=== PATIENT | female | born 1950 | race Caucasian/White ===

== ENCOUNTER 2023-09-25 18:55 | Inpatient (IN) | payer BC, MEDICARE ==
--- NOTE | 2023-09-25 19:57 | ED ---
Recheck HPI - General Chief Complaint: Recheck/Abnormal Lab/Rx Stated Complaint: Hyperkalemia Time Seen by Provider: 09/25/23 18:57 Source: patient, RN notes reviewed Mode of arrival: EMS Limitations: no limitations - History of Present Illness Initial Comments: This is a 73-year-old female who presents to the emergency department as a transfer from [facility] for hyperkalemia. She presented to the emergency department there today for feelings of fatigue, dizziness, and sleepiness. States "I feel like I cannot keep my eyes open". States that she has felt like this for the last couple of days. Denies any chest pain, shortness of breath, abdominal pain, headaches, or any other complaints. She has a history of renal cancer and was previously being treated with Keytruda, however she discontinued this in June and has decided to discontinue any further treatment. Her workup in [place] demonstrated elevated potassium, prompting them to transfer her here for further management, as they do not have nephrology available there. MD Complaint: abnormal lab - Related Data Home Medications Medication Instructions Recorded Confirmed aMILoride HCL 5 mg PO BID 09/25/23 09/25/23 atenoloL [Tenormin] 50 mg PO BID 09/25/23 09/25/23 hydrALAZINE HCL [Apresoline] 25 mg PO QID 09/25/23 09/25/23 lisinopriL [Zestril] 20 mg PO BID 09/25/23 09/25/23 metFORMIN HCL [Glucophage] 850 mg PO BID 09/25/23 09/25/23 Allergies Allergy/AdvReac Type Severity Reaction Status Date / Time clindamycin Allergy Rash/Hives Verified 09/25/23 21:06 Penicillins Allergy Unknown Verified 09/25/23 21:06 Childhood Review of Systems ROS Statement: Those systems with pertinent positive or pertinent negative responses have been documented in the HPI. ROS Other: All systems not noted in ROS Statement are negative. Past Medical History Past Medical History: Cancer Additional Past Medical History / Comment(s): Renal cancer History of Any Multi-Drug Resistant Organisms: None Reported Additional Past Surgical History / Comment(s): Kidney removal. port insert, p ort removal Smoking Status: Never smoker Past Alcohol Use History: None Reported Past Drug Use History: None Reported General Exam Limitations: no limitations General appearance: alert, in no apparent distress Head exam: Present: atraumatic, normocephalic, normal inspection Respiratory exam: Present: normal lung sounds bilaterally. Absent: respiratory distress, wheezes, rales, rhonchi, stridor Cardiovascular Exam: Present: regular rate, normal rhythm, normal heart sounds. Absent: systolic murmur, diastolic murmur, rubs, gallop, clicks GI/Abdominal exam: Present: soft, normal bowel sounds. Absent: distended, tenderness, guarding, rebound, rigid Neurological exam: Present: alert, oriented X3, CN II-XII intact Psychiatric exam: Present: normal affect, normal mood Skin exam: Present: warm, dry, intact, normal color. Absent: rash Course Vital Signs 09/25/23 09/25/23 09/25/23 18:59 19:08 21:12 Temperature 97.9 F Pulse Rate 60 57 L 62 Respiratory 18 18 18 Rate Blood Pressure 183/106 183/106 162/79 O2 Sat by Pulse 97 97 96 Oximetry 09/25/23 09/26/23 23:00 01:50 Temperature 98.0 F Pulse Rate 61 59 L Respiratory 18 16 Rate Blood Pressure 144/73 141/63 O2 Sat by Pulse 97 94 L Oximetry Medical Decision Making - Medical Decision Making This is a 73-year-old female who presents to the emergency department for hyperkalemia. Was pt. sent in by a medical professional or institution? @ -No Did you speak to anyone other than the patient for history? @ -No Did you review nursing and triage notes? @ -Yes, and I agree, it is accurate with regards to the patient's symptoms. Were old charts reviewed? @ -Records sent with the patient from [facility]. Potassium was 7.2, Na 123, Cr 1.3, and eGFR 42. Blood work was obtained one day prior on 09/24, and potassium at that time was 5.0. Mg was 1.9. Urinalysis was also consistent with a UTI. Differential Diagnosis? @ -Differential Hyperkalemia: Renal failure, medications, diet, rhabdomyolysis, this is not meant to be an all-inclusive list. EKG interpreted by me (3pts min.)? @ -EKG interpreted by me demonstrating the following: Sinus rhythm. Ventricular rate 60 beats per minute, NE interval 226 ms, QRS duration 110 seconds, QTC 434 ms. X-rays interpreted by me (1pt min.)? @ -Not obtained CT interpreted by me (1pt min.)? @ -Not obtained U/S interpreted by me (1pt. min.)? @ -Not obtained What testing was considered but not performed? (CT, X-rays, U/S, labs)? Why? @ -None What meds were considered but not given? Why? @ -None Did you discuss the management of the patient with other professionals? @ -Yes, Dr. Palmer, who accepts the patient for admission. Did you reconcile home meds? @ -Yes Was smoking cessation discussed for >3mins.? @ -No Was critical care preformed (if so, how long)? @ -No Were there social determinants of health that impacted care today? How? (Homelessness, low income, unemployed, alcoholism, drug addiction, transportation, low edu. Level, literacy, decrease access to med. care, group home, rehab)? @ -No Was there de-escalation of care discussed even if they declined? (Discuss DNR or withdrawal of care, Hospice)? @ -No What co-morbidities impacted this encounter? (DM, HTN, Smoking, COPD, CAD, Cancer, CVA, Hep., AIDS, mental health diagnosis, sleep apnea, morbid obesity)? @ -DM type 2, vitamin D deficiency, HLD, hypomagnesemia, HTN, renal cancer Was patient admitted / discharged? @ -Admitted. Lab work obtained demonstrating a potassium of 6.4, which is improved when compared with 7.2 at [place]. She also has hyponatremia with a sodium of 125 and impaired kidney function with a creatinine of 1.09 and eGFR of 50. Urinalysis is also positive for a UTI. States that this was diagnosed 2 days ago. She did already receive a dose of Ceftriaxone before leaving [place] today. Hyperkalemia cocktail administered consisting of calcium gluconate, insulin, sodium bicarbonate, and Lokelma. Recheck of potassium is 5.3. Patient admitted to medicine for hyperkalemia and hyponatremia. Consult placed for nephrology. Undiagnosed new problem with uncertain prognosis? @ -None Drug Therapy requiring intensive monitoring for toxicity (Heparin, Nitro, Insulin, Cardizem)? @ -None Were any procedures done? @ -None Diagnosis/symptom? @ -Hyperkalemia, hyponatremia, UTI Acute, or Chronic, or Acute on Chronic? @ -Acute Uncomplicated (without systemic symptoms) or Complicated (systemic symptoms)? @ -Complicated Side effects of treatment? @ -None Exacerbation, Progression, or Severe Exacerbation] @ -Not applicable Poses a threat to life or bodily function? @ -Yes This case was discussed in detail with the attending ED physician, Dr. Santiago. Presentation, findings, and treatment plan discussed in detail as well. - Lab Data Result diagrams: 09/25/23 19:47 09/26/23 00:48 Lab Results 09/25/23 09/25/23 09/25/23 Range/Units 19:47 19:47 19:47 WBC 7.0 (3.8-10.6) k/uL RBC 4.39 (3.80-5.40) m/uL Hgb 13.1 (11.4-16.0) gm/dL Hct 38.1 (34.0-46.0) % MCV 86.9 (80.0-100.0) fL MCH 29.8 (25.0-35.0) pg MCHC 34.3 (31.0-37.0) g/dL RDW 12.9 (11.5-15.5) % Plt Count 420 (150-450) k/uL MPV 6.9 Neutrophils % 84 % Lymphocytes % 7 % Monocytes % 4 % Eosinophils % 2 % Basophils % 1 % Neutrophils # 5.9 (1.3-7.7) k/uL Lymphocytes # 0.5 L (1.0-4.8) k/uL Monocytes # 0.3 (0-1.0) k/uL Eosinophils # 0.2 (0-0.7) k/uL Basophils # 0.0 (0-0.2) k/uL VBG pH (7.31-7.41) VBG pCO2 (37-51) mmHg VBG HCO3 (24-28) mmol/L Sodium 125 L (137-145) mmol/L Potassium 6.4 H* (3.5-5.1) mmol/L Chloride 97 L (98-107) mmol/L Carbon Dioxide 16 L (22-30) mmol/L Anion Gap 12 mmol/L BUN 21 H (7-17) mg/dL Creatinine 1.09 H (0.52-1.04) mg/dL Est GFR (CKD-EPI)AfAm 58 (>60 ml/min/1.73 sqM) Est GFR (CKD-EPI)NonAf 50 (>60 ml/min/1.73 sqM) Glucose 130 H (74-99) mg/dL POC Glucose (mg/dL) (70-110) mg/dL POC Glu Turnstile Collector ID Calcium 9.4 (8.4-10.2) mg/dL Phosphorus 4.0 (2.5-4.5) mg/dL Magnesium 2.0 (1.6-2.3) mg/dL Total Bilirubin 0.4 (0.2-1.3) mg/dL AST 22 (14-36) U/L ALT 22 (4-34) U/L Alkaline Phosphatase 85 (38-126) U/L Troponin I (0.000-0.034) ng/mL Total Protein 7.0 (6.3-8.2) g/dL Albumin 4.3 (3.5-5.0) g/dL Urine Color Colorless Urine Appearance Clear (Clear) Urine pH 7.5 (5.0-8.0) Ur Specific Shelby 1.007 (1.001-1.035) Urine Protein Negative (Negative) Urine Glucose (UA) Negative (Negative) Urine Ketones Negative (Negative) Urine Blood Negative (Negative) Urine Nitrite Positive H (Negative) Urine Bilirubin Negative (Negative) Urine Urobilinogen <2.0 (<2.0) mg/dL Ur Leukocyte Esterase Moderate H (Negative) Urine RBC 1 (0-5) /hpf Urine WBC 26 H (0-5) /hpf Urine Bacteria Rare H (None) /hpf 09/25/23 09/25/23 09/25/23 Range/Units 19:47 19:47 21:06 WBC (3.8-10.6) k/uL RBC (3.80-5.40) m/uL Hgb (11.4-16.0) gm/dL Hct (34.0-46.0) % MCV (80.0-100.0) fL MCH (25.0-35.0) pg MCHC (31.0-37.0) g/dL RDW (11.5-15.5) % Plt Count (150-450) k/uL MPV Neutrophils % % Lymphocytes % % Monocytes % % Eosinophils % % Basophils % % Neutrophils # (1.3-7.7) k/uL Lymphocytes # (1.0-4.8) k/uL Monocytes # (0-1.0) k/uL Eosinophils # (0-0.7) k/uL Basophils # (0-0.2) k/uL VBG pH 7.33 (7.31-7.41) VBG pCO2 37 (37-51) mmHg VBG HCO3 20 L (24-28) mmol/L Sodium (137-145) mmol/L Potassium (3.5-5.1) mmol/L Chloride (98-107) mmol/L Carbon Dioxide (22-30) mmol/L Anion Gap mmol/L BUN (7-17) mg/dL Creatinine (0.52-1.04) mg/dL Est GFR (CKD-EPI)AfAm (>60 ml/min/1.73 sqM) Est GFR (CKD-EPI)NonAf (>60 ml/min/1.73 sqM) Glucose (74-99) mg/dL POC Glucose (mg/dL) 140 H (70-110) mg/dL POC Glu Turnstile Collector ID Lugo, Cherelle Calcium (8.4-10.2) mg/dL Phosphorus (2.5-4.5) mg/dL Magnesium (1.6-2.3) mg/dL Total Bilirubin (0.2-1.3) mg/dL AST (14-36) U/L ALT (4-34) U/L Alkaline Phosphatase (38-126) U/L Troponin I <0.012 (0.000-0.034) ng/mL Total Protein (6.3-8.2) g/dL Albumin (3.5-5.0) g/dL Urine Color Urine Appearance (Clear) Urine pH (5.0-8.0) Ur Specific Shelby (1.001-1.035) Urine Protein (Negative) Urine Glucose (UA) (Negative) Urine Ketones (Negative) Urine Blood (Negative) Urine Nitrite (Negative) Urine Bilirubin (Negative) Urine Urobilinogen (<2.0) mg/dL Ur Leukocyte Esterase (Negative) Urine RBC (0-5) /hpf Urine WBC (0-5) /hpf Urine Bacteria (None) /hpf Disposition Clinical Impression: Hyperkalemia, Hyponatremia, UTI (urinary tract infection) Disposition: ADMITTED IP TO THIS HOSP
[2023-09-25 20:13] LABS: Basophils % (A) 1 %; Eosinophils # (A) 0.2 k/uL (0-0.7); Eosinophils % (A) 2 %; HCT 38.1 % (34.0-46.0); HGB 13.1 gm/dL (11.4-16.0); Lymphocytes # (A) 0.5 k/uL (1.0-4.8); Lymphocytes % (A) 7 %; MCH 29.8 pg (25.0-35.0); MCHC 34.3 g/dL (31.0-37.0); MCV 86.9 fL (80.0-100.0); Mean Platelet Volume 6.9; Monocytes # (A) 0.3 k/uL (0-1.0); Monocytes % (A) 4 %; Neutrophils # (A) 5.9 k/uL (1.3-7.7); Neutrophils % (A) 84 %; Platelet Count 420 k/uL (150-450); RBC 4.39 m/uL (3.80-5.40); RDW 12.9 % (11.5-15.5)
[2023-09-25 20:16] LABS: VBG PH 7.33 (7.31-7.41)
[2023-09-25 20:35] LABS: ALT 22 U/L (4-34); AST 22 U/L (14-36); African American GFR (CKD) 58 (>60 ml/min/1.73 sqM); Albumin 4.3 g/dL (3.5-5.0); Alkaline Phosphatase 85 U/L (38-126); Anion Gap 12 mmol/L; Blood Urea Nitrogen 21 mg/dL (7-17); Calcium 9.4 mg/dL (8.4-10.2); Carbon Dioxide 16 mmol/L (22-30); Chloride 97 mmol/L (98-107); Glucose 130 mg/dL (74-99); Non-African American GFR(CKD) 50 (>60 ml/min/1.73 sqM); Sodium 125 mmol/L (137-145); Total Bilirubin 0.4 mg/dL (0.2-1.3)
[2023-09-25 20:43] LABS: Potassium 6.4 mmol/L (3.5-5.1)
[2023-09-25] MEDS ORDERED: DEXTROSE 50% SYRINGE 50 ML IVP ONE (20:49)
[2023-09-25] MEDS ORDERED: SODIUM ZIRCONIUM CYCLOSILICATE 10 GM PACKET PO ONE (20:49)
[2023-09-25] MEDS ORDERED: INSULIN REGULAR 100 UNIT/ML VIAL (IV) IV ONE (20:49)
[2023-09-25] MEDS ORDERED: SODIUM BICARB 8.4% 50 ML SYR (1 MEQ/ML) IV ONE (20:49)
[2023-09-25 20:52] LABS: Appearance,Urine Clear (Clear); Bacteria,Urine Rare /hpf; Bilirubin,Urine Negative (Negative); Blood,Urine Negative (Negative); Color,Urine Colorless; Glucose,Urine (UA) Negative (Negative); Ketones,Urine Negative (Negative); Leukocyte Esterase,Urine Moderate (Negative); Nitrite,Urine Positive (Negative); PH, Urine 7.5 (5.0-8.0); Protein,Urine Negative (Negative); RBC,Urine 1 /hpf (0-5); Specific Gravity,Urine 1.007 (1.001-1.035); Urobilinogen,Urine <2.0 mg/dL (<2.0); WBC,Urine 26 /hpf (0-5)
[2023-09-25 21:08] LABS: Glucose,Whole Blood 140 mg/dL (70-110)
[2023-09-25] MEDS ORDERED: NALOXONE 0.4 MG/ML 1 ML VIAL IV PRN (21:10)
[2023-09-25] MEDS ORDERED: HYDROcodone/APAP 5-325MG 1 EACH TAB PO PRN (21:10)
[2023-09-25] MEDS ORDERED: ONDANSETRON 4 MG/2 ML VIAL IVP PRN (21:10)
[2023-09-25] MEDS ORDERED: CALCIUM GLUCONATE IN NACL 1 GM in SALINE 1 100ML.BAG IVPB ONE (21:20)
[2023-09-25] MEDS ORDERED: DEXTROSE 10% IN WATER 500 ML in EMPTY BAG 1 BAG IV ONE (21:30)
[2023-09-25] MEDS ORDERED: SPIRONOLACTONE 25 MG TAB PO SCH (21:45)
[2023-09-25] MEDS ORDERED: lisinopriL 20 MG TAB PO SCH (21:45)
[2023-09-25] MEDS ORDERED: metFORMIN 850 MG TAB PO SCH (21:45)
[2023-09-25] MEDS ORDERED: hydrALAZINE HCL 20 MG/ML 1 ML VIAL IVP PRN (21:52)
[2023-09-25] MEDS ORDERED: hydrALAZINE HCL 25 MG TAB PO SCH (22:00)
[2023-09-25] MEDS: atenoloL 50 MG TAB PO SCH (23:31)
[2023-09-25] MEDS: hydrALAZINE HCL 50 MG TAB PO SCH (23:31)
[2023-09-25] MEDS: DEXTROSE 5% IN WATER 1,000 ML with SODIUM BICARB (1 MEQ/ML) 150 ML IV SCH (23:34)
[2023-09-26] MEDS: ACETAMINOPHEN TAB 325 MG TAB PO PRN ×2 (01:48→13:03)
[2023-09-26 07:36] LABS: HCT 35.9 % (34.0-46.0); HGB 12.3 gm/dL (11.4-16.0); MCH 29.7 pg (25.0-35.0); MCHC 34.2 g/dL (31.0-37.0); MCV 86.9 fL (80.0-100.0); Mean Platelet Volume 7.3; Platelet Count 396 k/uL (150-450); RBC 4.13 m/uL (3.80-5.40); RDW 12.9 % (11.5-15.5); WBC 5.5 k/uL (3.8-10.6)
--- NOTE | 2023-09-26 08:02 | US ---
EXAMINATION TYPE: US kidneys/renal and bladder DATE OF EXAM: 09/25/2023 COMPARISON: NONE CLINICAL INDICATION: Female, 73 years old with history of tomás; TOMÁS. Nephrectomy in September 2022 EXAM MEASUREMENTS: Right Kidney: 11.2 x 4.4 x 6.1 cm Left Kidney: Surgically absent Right Kidney: Dilated renal pelvis , no evidence for mass. Cortical medullary differentiation is temo ntained. Left Kidney: Surgically absent Bladder: Contracted due to proctor Bilateral Jets seen: Not assessed IMPRESSION: 1. Proctor catheter in place. 2. Dilated right renal pelvis correlate for hydronephrosis. 3. Surgical clips left kidney.
[2023-09-26 08:31] LABS: African American GFR (CKD) 63 (>60 ml/min/1.73 sqM); Anion Gap 10 mmol/L; Blood Urea Nitrogen 18 mg/dL (7-17); Calcium 9.6 mg/dL (8.4-10.2); Carbon Dioxide 21 mmol/L (22-30); Chloride 96 mmol/L (98-107); Glucose 115 mg/dL (74-99); Non-African American GFR(CKD) 55 (>60 ml/min/1.73 sqM); Potassium 4.9 mmol/L (3.5-5.1); Sodium 127 mmol/L (137-145)
[2023-09-26] MEDS: hydrALAZINE HCL 50 MG TAB PO SCH ×4 (10:12→23:36)
[2023-09-26] MEDS: NITROFURANTOIN MONOHYD/M-CRYST 100 MG CAP PO SCH ×2 (10:12→21:00)
[2023-09-26] MEDS: atenoloL 50 MG TAB PO SCH ×2 (10:12→21:00)
--- NOTE | 2023-09-26 11:53 | P.HPIM ---
History of Present Illness H&P Date: 09/26/23 Chief Complaint: Abnormal blood work * 73-year-old lady with past medical history significant for nephrectomy, history of renal cancer is post left nephrectomy, hypertension, diabetes mellitus type 2 presents to the emergency department sent in from outside hospital for management for hyperkalemia due to lack of availability of nephrology * Patient has been complaining of fatigue, pathology and lightheadedness at the time of presentation, patient states her symptoms have been going on for the last 48 hours * While in ER patient was also noted to have urinary retention with 700 mL of post void residue hence Arana catheter placed * At the time of presentation in ED workup was initiated including CBC which showed WBC 7 hemoglobin 13 platelet count of 420 * Serum chemistry obtained showed sodium of 125 potassium of 6.4 chloride 97 carbon dioxide 16 BU and 21 creatinine 1.09 * Urinalysis obtained in ER showed pH of 7.5 urine specific gravity 1.007, urine nitrate positive, moderate leukocyte esterase WBC 20 6B bacteria urine RBC 1 * Treatment for hyperkalemia was initiated in ER patient received calcium gluconate, insulin, sodium bicarbonate and low, * Follow-up basic metabolic panel and potassium levels ordered and nephrology consulted REVIEW OF SYSTEMS: Fatigue, lethargy, malaise CONSTITUTIONAL: Fatigue, lethargy, malaise HEENT: No recent visual problems or hearing problems. Denied any sore throat. CARDIOVASCULAR: No chest pain, orthopnea, PND, no palpitations, no syncope. PULMONARY: No shortness of breath, no cough, no hemoptysis. GASTROINTESTINAL: No diarrhea, no nausea, no vomiting, no abdominal pain. NEUROLOGICAL: No headaches, no weakness, no numbness. HEMATOLOGICAL: Denies any bleeding or petechiae. GENITOURINARY: Denies any burning micturition, frequency, or urgency. MUSCULOSKELETAL/RHEUMATOLOGICAL: Denies any joint pain, swelling, or any muscle pain. ENDOCRINE: Fatigue, lethargy, malaise PHYSICAL EXAMINATION: GENERAL: The patient is alert and oriented x3, ill appearance HEENT: Pupils are round and equally reacting to light. EOMI. CARDIOVASCULAR: S1 and S2 present. No murmurs, rubs, or gallops. PULMONARY: Chest is clear to auscultation, no wheezing or crackles. ABDOMEN: Soft, nontender, nondistended, normoactive bowel sounds. No palpable organomegaly. Arana cath in place MUSCULOSKELETAL: No joint swelling or deformity. EXTREMITIES: No cyanosis, clubbing, or pedal edema. NEUROLOGICAL: Gross neurological examination did not reveal any focal deficits. Past Medical History Past Medical History: Cancer Additional Past Medical History / Comment(s): Renal cancer History of Any Multi-Drug Resistant Organisms: None Reported Additional Past Surgical History / Comment(s): Kidney removal. port insert, port removal Smoking Status: Never smoker Past Alcohol Use History: None Reported Past Drug Use History: None Reported Medications and Allergies Home Medications Medication Instructions Recorded Confirmed Type aMILoride HCL 5 mg PO BID 09/25/23 09/25/23 History atenoloL [Tenormin] 50 mg PO BID 09/25/23 09/25/23 History hydrALAZINE HCL [Apresoline] 25 mg PO QID 09/25/23 09/25/23 History lisinopriL [Zestril] 20 mg PO BID 09/25/23 09/25/23 History metFORMIN HCL [Glucophage] 850 mg PO BID 09/25/23 09/25/23 History Allergies Allergy/AdvReac Type Severity Reaction Status Date / Time clindamycin Allergy Rash/Hives Verified 09/25/23 21:06 Penicillins Allergy Unknown Verified 09/25/23 21:06 Childhood Physical Exam Vitals: Vital Signs Temp Pulse Resp BP Pulse Ox 09/26/23 06:46 53 L 18 145/69 99 09/26/23 01:50 98.0 F 59 L 16 141/63 94 L 09/25/23 23:00 61 18 144/73 97 09/25/23 21:12 62 18 162/79 96 09/25/23 19:08 97.9 F 57 L 18 183/106 97 09/25/23 18:59 60 18 183/106 97 Intake and Output 09/25/23 09/26/23 09/26/23 22:59 06:59 14:59 Output Total 600 1150 Balance -600 -1150 Output: Urine 600 1150 Uretheral (Arana) 600 Other: Weight 65.317 kg Results CBC & Chem 7: 09/26/23 07:02 09/26/23 07:02 Labs: Abnormal Lab Results - Last 24 Hours (Table) 09/25/23 09/25/23 09/25/23 Range/Units 19:47 19:47 19:47 Lymphocytes # 0.5 L (1.0-4.8) k/uL VBG HCO3 (24-28) mmol/L Sodium 125 L (137-145) mmol/L Potassium 6.4 H* (3.5-5.1) mmol/L Chloride 97 L (98-107) mmol/L Carbon Dioxide 16 L (22-30) mmol/L BUN 21 H (7-17) mg/dL Creatinine 1.09 H (0.52-1.04) mg/dL Glucose 130 H (74-99) mg/dL POC Glucose (mg/dL) (70-110) mg/dL Urine Nitrite Positive H (Negative) Ur Leukocyte Esterase Moderate H (Negative) Urine WBC 26 H (0-5) /hpf Urine Bacteria Rare H (None) /hpf 09/25/23 09/25/23 09/26/23 Range/Units 19:47 21:06 00:48 Lymphocytes # (1.0-4.8) k/uL VBG HCO3 20 L (24-28) mmol/L Sodium (137-145) mmol/L Potassium 5.3 H (3.5-5.1) mmol/L Chloride (98-107) mmol/L Carbon Dioxide (22-30) mmol/L BUN (7-17) mg/dL Creatinine (0.52-1.04) mg/dL Glucose (74-99) mg/dL POC Glucose (mg/dL) 140 H (70-110) mg/dL Urine Nitrite (Negative) Ur Leukocyte Esterase (Negative) Urine WBC (0-5) /hpf Urine Bacteria (None) /hpf 09/26/23 Range/Units 07:02 Lymphocytes # (1.0-4.8) k/uL VBG HCO3 (24-28) mmol/L Sodium 127 L (137-145) mmol/L Potassium (3.5-5.1) mmol/L Chloride 96 L (98-107) mmol/L Carbon Dioxide 21 L (22-30) mmol/L BUN 18 H (7-17) mg/dL Creatinine (0.52-1.04) mg/dL Glucose 115 H (74-99) mg/dL POC Glucose (mg/dL) (70-110) mg/dL Urine Nitrite (Negative) Ur Leukocyte Esterase (Negative) Urine WBC (0-5) /hpf Urine Bacteria (None) /hpf Thrombosis Risk Factor Assmnt - DVT/VTE Prophylaxis DVT/VTE Prophylaxis: Mechanical Prophylaxis ordered Assessment and Plan Assessment: Assessment and plan * Acute renal failure with hyperkalemia, urinary retention * Acute hyponatremia * Metabolic acidosis * Urinary tract infection * History of hypertension * History of nephrectomy for renal cancer/left nephrectomy * In regards to renal failure, follow-up on renal profile, ultrasound renal pelvis shows dilated right renal pelvis, left nephrectomy noted, Arana cath in place, continue IV fluids * In regards to hyponatremia, follow-up on serum sodium levels post hydration * In regards to hyperkalemia, correction ordered follow-up potassium levels improved * In regards to urinary tract infection, urine cultures ordered, penicillin ALLERGY, started on Macrobid, Arana catheter placed for urinary retention * In regards to hypertension, lisinopril placed on hold secondary to renal failure and hyperkalemia continue atenolol, when necessary IV hydralazine, oral hydralazine ordered as well * CODE STATUS is full code Time with Patient: Greater than 30
[2023-09-26] MEDS: DEXTROSE 5% IN WATER 1,000 ML with SODIUM BICARB (1 MEQ/ML) 150 ML IV SCH (12:57)
--- NOTE | 2023-09-26 13:16 | P.NPCON ---
History of Present Illness - Reason for Consult chronic renal failure, hyperkalemia - History of Present Illness Reason for consultation: Chronic kidney disease and hyperkalemia next History of present illness: Patient is a 73-year-old female seen in consultation for chronic kidney disease and hyperkalemia. Patient has history of chronic kidney disease stage IIIA with baseline creatinine near 1.1 secondary to solitary right kidney. Patient has history of kidney cancer and underwent left-sided nephrectomy in September 2022. Patient was feeling weak and sleepy and went to [facility] and was subsequently sent here due to hyperkalemia. Patient's potassium on admission was 6.4. She was also acidotic with a bicarb level of 16. She is currently on bicarb drip. Creatinine is 1-1.02. Sodium level is up to 127. Potassium level is down to 4.9. She also has a Arana catheter for urinary retention and is nonoliguric. She was on amiloride as well as lisinopril which are both currently held. She denies use of nonsteroidals. Oral intake is fair. She does admit to drinking about 60 ounces of fluid daily. Denies vomiting or diarrhea. No chest pain or shortness of breath. No edema. Vital signs are stable. General: No acute distress. HEENT: Head exam is unremarkable. LUNGS: No audible rhonchi or wheezes. HEART: Rate and Rhythm are regular. ABDOMEN: Nontender. EXTREMITITES: No edema. Past Medical History Past Medical History: Cancer Additional Past Medical History / Comment(s): Renal cancer History of Any Multi-Drug Resistant Organisms: None Reported Additional Past Surgical History / Comment(s): Kidney removal. port insert, port removal Smoking Status: Never smoker Past Alcohol Use History: None Reported Past Drug Use History: None Reported Medications and Allergies Home Medications Medication Instructions Recorded Confirmed Type aMILoride HCL 5 mg PO BID 09/25/23 09/25/23 History atenoloL [Tenormin] 50 mg PO BID 09/25/23 09/25/23 History hydrALAZINE HCL [Apresoline] 25 mg PO QID 09/25/23 09/25/23 History lisinopriL [Zestril] 20 mg PO BID 09/25/23 09/25/23 History metFORMIN HCL [Glucophage] 850 mg PO BID 09/25/23 09/25/23 History Allergies Allergy/AdvReac Type Severity Reaction Status Date / Time clindamycin Allergy Rash/Hives Verified 09/25/23 21:06 Penicillins Allergy Unknown Verified 09/25/23 21:06 Childhood Physical Exam Vitals: Vital Signs Temp Pulse Resp BP Pulse Ox 09/26/23 12:55 63 18 147/67 96 09/26/23 11:35 62 18 165/77 95 09/26/23 10:10 98.0 F 58 L 18 164/80 97 09/26/23 09:00 60 18 173/81 97 09/26/23 06:46 53 L 18 145/69 99 09/26/23 01:50 98.0 F 59 L 16 141/63 94 L 09/25/23 23:00 61 18 144/73 97 09/25/23 21:12 62 18 162/79 96 09/25/23 19:08 97.9 F 57 L 18 183/106 97 09/25/23 18:59 60 18 183/106 97 Intake and Output 09/25/23 09/26/23 09/26/23 22:59 06:59 14:59 Output Total 600 1150 1400 Balance -600 -1150 -1400 Output: Urine 600 1150 1400 Uretheral (Arana) 600 Other: Weight 65.317 kg Results - Lab Results Most recent lab results Calcium 9.6 mg/dL (8.4-10.2) 09/26/23 07:02 Phosphorus 4.0 mg/dL (2.5-4.5) 09/25/23 19:47 Magnesium 2.0 mg/dL (1.6-2.3) 09/25/23 19:47 09/26/23 07:02 09/26/23 07:02 Assessment and Plan Plan: Assessment: 1. Chronic kidney disease stage IIIa secondary to solitary right kidney with baseline creatinine 1-1.1. 2. Hypovolemic hyponatremia improved with IV fluids. 3. Hyperkalemia secondary to amiloride, lisinopril and acidosis. Improved with medical management. 4. Hypertension with chronic kidney disease. 5. History of hypomagnesemia. Magnesium level normal this admission. Patient states she was started on amiloride due to the hypomagnesemia. Patient states s he started it about 2 weeks ago as it was on hold prior to that while she was on chemotherapy. 6. History of renal cancer status post left nephrectomy. 7. Urinary retention. Arana catheter placed. Plan: Stop bicarb drip. Start normal saline at 75 mL an hour. Add oral bicarb. Continue to hold lisinopril and amiloride for now. Maintain Arana catheter. Add Flomax. Add amlodipine 5 mg once daily. Repeat labs in the morning. Thank you for the consultation. I will continue to follow the patient with you during her hospital stay.
[2023-09-26] MEDS: amLODIPine 5 MG TAB PO SCH (15:17)
[2023-09-26] MEDS: SODIUM BICARBONATE TAB 650 MG TAB PO SCH ×2 (15:18→21:00)
[2023-09-26] MEDS: SODIUM CHLORIDE 0.9% 1,000 ML IV SCH (15:18)
[2023-09-26] MEDS: TAMSULOSIN 0.4 MG CAP.ER.24H PO SCH (15:18)
[2023-09-27 09:38] LABS: HCT 35.8 % (34.0-46.0); HGB 12.3 gm/dL (11.4-16.0); MCH 29.6 pg (25.0-35.0); MCHC 34.4 g/dL (31.0-37.0); MCV 86.1 fL (80.0-100.0); Mean Platelet Volume 7.6; Platelet Count 389 k/uL (150-450); RBC 4.16 m/uL (3.80-5.40)
[2023-09-27] MEDS: SODIUM BICARBONATE TAB 650 MG TAB PO SCH ×3 (09:51→21:06)
[2023-09-27] MEDS: TAMSULOSIN 0.4 MG CAP.ER.24H PO SCH (09:51)
[2023-09-27] MEDS: amLODIPine 5 MG TAB PO SCH (09:51)
[2023-09-27] MEDS: NITROFURANTOIN MONOHYD/M-CRYST 100 MG CAP PO SCH ×2 (09:51→21:06)
[2023-09-27] MEDS: hydrALAZINE HCL 50 MG TAB PO SCH ×4 (09:51→21:06)
[2023-09-27] MEDS: atenoloL 50 MG TAB PO SCH ×2 (09:51→21:06)
[2023-09-27] MEDS: SODIUM CHLORIDE 0.9% 1,000 ML IV SCH ×2 (10:05→16:07)
--- NOTE | 2023-09-27 11:53 | P.PN ---
Subjective Patient is seen for follow-up for acute kidney injury and chronic kidney disease. She was admitted with hyperkalemia and metabolic acidosis as well. Also noted to have urine retention and currently with indwelling Arana catheter. Lisinopril is on hold and patient was started on amlodipine. She has previously had significant lower extremity edema with amlodipine. Overall patient states she is feeling better. Potassium was 4.9 yesterday with sodium at 127 and serum creatinine 1.02. Objective - Vital Signs Vital signs: Vital Signs Temp 98.7 F 09/27/23 08:00 Pulse 58 L 09/27/23 08:40 Resp 16 09/27/23 08:40 BP 168/76 09/27/23 08:00 Pulse Ox 97 09/27/23 08:00 FiO2 Intake & Output 09/26/23 09/27/23 09/27/23 18:59 06:59 18:59 Intake Total 240 Output Total 1400 1400 79 Balance -1400 -1400 161 Weight 65.317 kg Intake: Oral 240 Output: Urine 1400 1400 Post Void Residual 79 Other: Voiding Method Indwelling Catheter Indwelling Catheter - Exam Patient is awake, comfortable, alert oriented 3 Examination of the heart S1 and S2 Examination of the lungs bilateral breath sounds are heard Abdomen is soft nontender Examination of lower extremity shows no significant edema BLADDER BLOWER exam grossly intact - Labs CBC & Chem 7: 09/27/23 07:02 09/26/23 07:02 Labs: Microbiology - Last 24 Hours (Table) 09/25/23 21:00 Blood Culture - Preliminary Blood 09/25/23 21:13 Blood Culture - Preliminary Blood 09/25/23 21:13 Urine Culture - Final Urine,Clean Catch Assessment and Plan Assessment: 1. Chronic kidney disease stage IIIa secondary to solitary right kidney with baseline creatinine 1-1.1. 2. Hypovolemic hyponatremia improved with IV fluids. 3. Hyperkalemia secondary to amiloride, lisinopril and acidosis and probably related to the urine retention as well. Improved with medical management. 4. Hypertension with chronic kidney disease. 5. History of hypomagnesemia. Magnesium level normal this admission. Patient states she was started on amiloride due to the hypomagnesemia. Patient states she started it about 2 weeks ago as it was on hold prior to that while she was on chemotherapy. 6. History of renal cancer status post left nephrectomy. 7. Urinary retention. Arana catheter placed. Plan: May continue with amlodipine for now as patient does not have any significant swelling. Continue off of lisinopril. DC Arana catheter and check post void bladder scan Continue with Flomax Continue with sodium bicarb Possible discharge tomorrow and follow-up in the office in one week
[2023-09-27 12:07] LABS: African American GFR (CKD) 60 (>60 ml/min/1.73 sqM); Anion Gap 11 mmol/L; Blood Urea Nitrogen 19 mg/dL (7-17); C Reactive Protein <0.5 mg/dL (<1.0); Calcium 9.3 mg/dL (8.4-10.2); Carbon Dioxide 22 mmol/L (22-30); Chloride 93 mmol/L (98-107); Glucose 131 mg/dL (74-99); Magnesium 1.6 mg/dL (1.6-2.3); Non-African American GFR(CKD) 52 (>60 ml/min/1.73 sqM); Potassium 4.7 mmol/L (3.5-5.1); Sodium 126 mmol/L (137-145)
[2023-09-27 12:12] LABS: Glucose,Whole Blood 170 mg/dL (70-110)
--- NOTE | 2023-09-27 12:53 | P.PN ---
Subjective Progress Note Date: 09/27/23 73-year-old lady with past medical history significant for nephrectomy, history of renal cancer is post left nephrectomy, hypertension, diabetes mellitus type 2 presents to the emergency department sent in from outside hospital for management for hyperkalemia due to lack of availability of nephrology * Patient has been complaining of fatigue, pathology and lightheadedness at the time of presentation, patient states her symptoms have been going on for the last 48 hours * While in ER patient was also noted to have urinary retention with 700 mL of post void residue hence Arana catheter placed * At the time of presentation in ED workup was initiated including CBC which showed WBC 7 hemoglobin 13 platelet count of 420 * Serum chemistry obtained showed sodium of 125 potassium of 6.4 chloride 97 carbon dioxide 16 BU and 21 creatinine 1.09 * Urinalysis obtained in ER showed pH of 7.5 urine specific gravity 1.007, urine nitrate positive, moderate leukocyte esterase WBC 20 6B bacteria urine RBC 1 * Treatment for hyperkalemia was initiated in ER patient received calcium gluconate, insulin, sodium bicarbonate and low, * Follow-up basic metabolic panel and potassium levels ordered and nephrology consulted * 09/27/2023: Patient seen and evaluated at bedside, renal function reviewed, creatinine 1.06, CRP within normal limits, sodium 126, status post Arana catheter removed, magnesium low to place continue IV fluid, potential discharge within the next 24 hours PHYSICAL EXAMINATION: GENERAL: The patient is alert and oriented x3, improved appearance HEENT: Pupils are round and equally reacting to light. EOMI. CARDIOVASCULAR: S1 and S2 present. No murmurs, rubs, or gallops. PULMONARY: Chest is clear to auscultation, no wheezing or crackles. ABDOMEN: Soft, nontender, nondistended, normoactive bowel sounds. No palpable organomegaly. Arana catheter removed MUSCULOSKELETAL: No joint swelling or deformity. EXTREMITIES: No cyanosis, clubbing, or pedal edema. NEUROLOGICAL: Gross neurological examination did not reveal any focal deficits. Objective - Vital Signs Vital signs: Vital Signs Temp 98.7 F 09/27/23 08:00 Pulse 58 L 09/27/23 08:40 Resp 16 09/27/23 08:40 BP 168/76 09/27/23 08:00 Pulse Ox 97 09/27/23 08:00 FiO2 Intake & Output 09/26/23 09/27/2323 18:59 06:59 18:59 Intake Total 240 Output Total 1400 1400 79 Balance -1400 -1400 161 Weight 65.317 kg Intake: Oral 240 Output: Urine 1400 1400 Post Void Residual 79 Other: Voiding Method Indwelling Catheter Indwelling Catheter - Labs CBC & Chem 7: 09/27/23 07:02 09/27/23 07:02 Labs: Abnormal Lab Results - Last 24 Hours (Table) 09/27/23 09/27/23 Range/Units 07:02 11:50 Sodium 126 L (137-145) mmol/L Chloride 93 L (98-107) mmol/L BUN 19 H (7-17) mg/dL Creatinine 1.06 H (0.52-1.04) mg/dL Glucose 131 H (74-99) mg/dL POC Glucose (mg/dL) 170 H (70-110) mg/dL Microbiology - Last 24 Hours (Table) 09/25/23 21:00 Blood Culture - Preliminary Blood 09/25/23 21:13 Blood Culture - Preliminary Blood 09/25/23 21:13 Urine Culture - Final Urine,Clean Catch Assessment and Plan Assessment: Assessment and plan * Acute renal failure with hyperkalemia, urinary retention * Acute hyponatremia * Metabolic acidosis * Urinary tract infection * History of hypertension * History of nephrectomy for renal cancer/left nephrectomy * In regards to renal failure, follow-up on renal profile, ultrasound renal pelvis shows dilated right renal pelvis, left nephrectomy noted, status post Arana removal, continue IV fluids * In regards to hyponatremia, follow-up on serum sodium levels post hydration * In regards to hyperkalemia, resolved * In regards to urinary tract infection, urine cultures ordered, penicillin ALLERGY, started on Macrobid day 2 , Arana catheter was placed for urinary retention * In regards to hypertension, lisinopril placed on hold secondary to renal failure and hyperkalemia >> continue atenolol, when necessary IV hydralazine, oral hydralazine ordered as well, will give amlodipine upon discharge * CODE STATUS is full code
[2023-09-27] MEDS: ACETAMINOPHEN TAB 325 MG TAB PO PRN (16:33)
[2023-09-27] MEDS: MAGNESIUM SULFATE-D5W PMX 1 GM in DEXTROSE/WATER 1 100ML.BAG IVPB SCH ×2 (17:19→19:42)
[2023-09-27 17:42] LABS: Glucose,Whole Blood 174 mg/dL (70-110)
[2023-09-27 20:35] LABS: Glucose,Whole Blood 245 mg/dL (70-110)
[2023-09-27 22:48] VITALS: RESP 16
[2023-09-28] MEDS: SODIUM CHLORIDE 0.9% 1,000 ML IV SCH (05:38)
[2023-09-28 07:40] LABS: Glucose,Whole Blood 141 mg/dL (70-110)
[2023-09-28 08:41] VITALS: TEMP 98.8
[2023-09-28] MEDS: TAMSULOSIN 0.4 MG CAP.ER.24H PO SCH (09:07)
[2023-09-28] MEDS: atenoloL 50 MG TAB PO SCH (09:07)
[2023-09-28] MEDS: amLODIPine 5 MG TAB PO SCH (09:07)
[2023-09-28] MEDS: hydrALAZINE HCL 50 MG TAB PO SCH (09:07)
[2023-09-28] MEDS: NITROFURANTOIN MONOHYD/M-CRYST 100 MG CAP PO SCH (09:07)
[2023-09-28] MEDS: SODIUM BICARBONATE TAB 650 MG TAB PO SCH (09:07)
[2023-09-28] MEDS ORDERED: amLODIPine 5 MG TAB PO ONE (09:30)
[2023-09-28] MEDS ORDERED: amLODIPine 10 MG TAB PO SCH (09:30)
[2023-09-28 11:08] LABS: African American GFR (CKD) 59 (>60 ml/min/1.73 sqM); Anion Gap 10 mmol/L; Blood Urea Nitrogen 17 mg/dL (7-17); Calcium 9.1 mg/dL (8.4-10.2); Carbon Dioxide 20 mmol/L (22-30); Chloride 98 mmol/L (98-107); Glucose 123 mg/dL (74-99); Non-African American GFR(CKD) 51 (>60 ml/min/1.73 sqM); Potassium 4.4 mmol/L (3.5-5.1); Sodium 128 mmol/L (137-145)
--- NOTE | 2023-09-28 11:28 | P.DS ---
Providers Date of admission: 09/26/23 13:39 Expected date of discharge: 09/28/23 Attending physician: Farnaz Palmer Consults: 09/25/23 21:10 Consult Physician Urgent Consulting Provider: Abraham Blank Consult Reason/Comments: Hyperkalemia, hyponatremia Do you want consulting provider notified?: Yes Primary care physician: [facility] Course: * 73-year-old lady with past medical history significant for nephrectomy, history of renal cancer is post left nephrectomy, hypertension, diabetes mellitus type 2 presents to the emergency department sent in from outside [facility] for management for hyperkalemia due to lack of availability of nephrology * Patient has been complaining of fatigue, pathology and lightheadedness at the time of presentation, patient states her symptoms have been going on for the last 48 hours * While in ER patient was also noted to have urinary retention with 700 mL of post void residue hence Arana catheter placed * At the time of presentation in ED workup was initiated including CBC which showed WBC 7 hemoglobin 13 platelet count of 420 * Serum chemistry obtained showed sodium of 125 potassium of 6.4 chloride 97 carbon dioxide 16 BU and 21 creatinine 1.09 * Urinalysis obtained in ER showed pH of 7.5 urine specific gravity 1.007, urine nitrate positive, moderate leukocyte esterase WBC 20 6B bacteria urine RBC 1 * Treatment for hyperkalemia was initiated in ER patient received calcium gluconate, insulin, sodium bicarbonate and low, * Follow-up basic metabolic panel and potassium levels ordered and nephrology consulted * 09/27/2023: Patient seen and evaluated at bedside, renal function reviewed, creatinine 1.06, CRP within normal limits, sodium 126, status post Arana catheter removed, magnesium low to place continue IV fluid, potential discharge within the next 24 hours * 09/28/2023: Patient seen and evaluated bedside, patient seen by nephrology and cleared for discharge, renal function improving, patient to complete course of antibiotic, antihypertensive medications adjusted, patient discharged on amlodipine, lisinopril and amiloride discontinued PHYSICAL EXAMINATION: GENERAL: The patient is alert and oriented x3, improved appearance HEENT: Pupils are round and equally reacting to light. EOMI. CARDIOVASCULAR: S1 and S2 present. No murmurs, rubs, or gallops. PULMONARY: Chest is clear to auscultation, no wheezing or crackles. ABDOMEN: Soft, nontender, nondistended, normoactive bowel sounds. No palpable organomegaly. Arana catheter removed MUSCULOSKELETAL: No joint swelling or deformity. EXTREMITIES: No cyanosis, clubbing, or pedal edema. NEUROLOGICAL: Gross neurological examination did not reveal any focal deficits. Assessment: Assessment and plan * Acute renal failure with hyperkalemia, urinary retention * Acute hyponatremia improved * Metabolic acidosis * Urinary tract infection * History of hypertension * History of nephrectomy for renal cancer/left nephrectomy * In regards to renal failure, follow-up on renal profile, ultrasound renal pelvis shows dilated right renal pelvis, left nephrectomy noted, status post Arana removal, appropriately resuscitated with IV fluids * In regards to hyponatremia, follow-up on serum sodium levels post hydration, s mary anne sodium improved * In regards to hyperkalemia, resolved * In regards to urinary tract infection, urine cultures ordered, penicillin ALLERGY, started on Macrobid day 3 /5 , Arana catheter was placed for urinary retention, removed prior to discharge, discharge on Flomax * In regards to hypertension, lisinopril placed on hold secondary to renal failure and hyperkalemia >> continue atenolol, when necessary IV hydralazine, oral hydralazine ordered as well, will give amlodipine upon discharge, continue oral hydralazine, lisinopril discontinued. Follow-up with nephrology post discharge Patient Condition at Discharge: Fair Plan - Discharge Summary Discharge Rx Participant: No New Discharge Prescriptions: New Tamsulosin [Flomax] 0.4 mg PO PC-BRKFST 7 Days #7 cap Nitrofurantoin Monohyd/M-Cryst [Macrobid] 100 mg PO BID 3 Days #6 cap amLODIPine [Norvasc] 10 mg PO DAILY 30 Days #30 tab Continue metFORMIN HCL [Glucophage] 850 mg PO BID hydrALAZINE HCL [Apresoline] 25 mg PO QID Magnesium Gluconate [Magonate] 200 mg PO QID atenoloL [Tenormin] 50 mg PO BID Discontinued lisinopriL [Zestril] 20 mg PO BID aMILoride HCL 5 mg PO BID Discharge Medication List atenoloL [Tenormin] 50 mg PO BID 09/25/23 [History] hydrALAZINE HCL [Apresoline] 25 mg PO QID 09/25/23 [History] metFORMIN HCL [Glucophage] 850 mg PO BID 09/25/23 [History] Magnesium Gluconate [Magonate] 200 mg PO QID 09/27/23 [History] Nitrofurantoin Monohyd/M-Cryst [Macrobid] 100 mg PO BID 3 Days #6 cap 09/28/23 [Rx] Tamsulosin [Flomax] 0.4 mg PO PC-BRKFST 7 Days #7 cap 09/28/23 [Rx] amLODIPine [Norvasc] 10 mg PO DAILY 30 Days #30 tab 09/28/23 [Rx] Follow up Appointment(s)/Referral(s): Gal Gordon MD [Primary Care Provider] - 1-2 days Shayy Lawler MD [STAFF PHYSICIAN] - 1 Week Discharge Disposition: HOME SELF-CARE
[2023-09-28 11:40] VITALS: BP 159/77; PULSE 59
--- NOTE | 2023-09-28 12:14 | P.PN ---
Subjective Patient is seen for follow-up for acute kidney injury and chronic kidney disease. She was admitted with hyperkalemia and metabolic acidosis as well. Also noted to have urine retention and currently with indwelling Arana catheter. Lisinopril is on hold and patient was started on amlodipine. She has previously had significant lower extremity edema with amlodipine. Overall patient states she is feeling better. Potassium was 4.4 today the at sodium 128 and serum creatinine at 1.0. Arana catheter was removed and patient has been voiding. Objective - Vital Signs Vital signs: Vital Signs Temp 98.8 F 09/28/23 08:00 Pulse 59 L 09/28/23 11:33 Resp 16 09/28/23 08:30 BP 159/77 09/28/23 11:33 Pulse Ox 97 09/28/23 08:00 FiO2 Intake & Output 09/27/23 09/28/23 09/28/23 18:59 06:59 18:59 Intake Total 910 830 120 Output Total 79 Balance 831 830 120 Intake: Oral 910 830 120 Output: Post Void Residual 79 Other: Voiding Method Indwelling Catheter Indwelling Catheter Indwelling Catheter # Voids 3 2 - Exam Patient is awake, comfortable, alert oriented 3 Examination of the heart S1 and S2 Examination of the lungs bilateral breath sounds are heard Abdomen is soft nontender Examination of lower extremity shows no significant edema 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 - Labs CBC & Chem 7: 09/27/23 07:02 09/28/23 07:00 Labs: Abnormal Lab Results - Last 24 Hours (Table) 09/27/23 09/27/23 09/27/23 Range/Units 11:50 17:40 20:34 Sodium (137-145) mmol/L Carbon Dioxide (22-30) mmol/L Creatinine (0.52-1.04) mg/dL Glucose (74-99) mg/dL POC Glucose (mg/dL) 170 H 174 H 245 H (70-110) mg/dL 09/28/23 09/28/23 Range/Units 07:00 07:38 Sodium 128 L (137-145) mmol/L Carbon Dioxide 20 L (22-30) mmol/L Creatinine 1.08 H (0.52-1.04) mg/dL Glucose 123 H (74-99) mg/dL POC Glucose (mg/dL) 141 H (70-110) mg/dL Microbiology - Last 24 Hours (Table) 09/25/23 21:00 Blood Culture - Preliminary Blood 09/25/23 21:13 Blood Culture - Preliminary Blood Assessment and Plan Assessment: 1. Chronic kidney disease stage IIIa secondary to solitary right kidney with baseline creatinine 1-1.1. 2. Hypovolemic hyponatremia improved with IV fluids. 3. Hyperkalemia secondary to amiloride, lisinopril and acidosis and probably related to the urine retention as well. Improved with medical management. 4. Hypertension with chronic kidney disease. 5. History of hypomagnesemia. Magnesium level normal this admission. Patient states she was started on amiloride due to the hypomagnesemia. Patient states she started it about 2 weeks ago as it was on hold prior to that while she was on chemotherapy. 6. History of renal cancer status post left nephrectomy. 7. Urinary retention on initial admission. Status post Arana catheter with no evidence of retention on bladder scan. Plan: Patient can be discharged from nephrology standpoint. Continue off of lisinopril and amiloride Continue with sodium bicarb Repeat labs as outpatient in 3-4 days time Follow-up as outpatient in 1 week
[2023-09-29] MEDS ORDERED: amLODIPine 10 MG TAB PO SCH (09:00)
== END 2023-09-28 12:56 | disposition home or self-care (01) | DRG 683 ==
LOC: EC 18:55 → 5NMEDONC 21:16 → OBSVTOIN 09-26 13:39 → 5NMEDONC 09-26 13:48
PROVIDERS: ADMIT Internal Medicine; ATTEND Internal Medicine
DX: N17.9 Acute kidney failure, unspecified (principal); E87.1 Hypo-osmolality and hyponatremia; N39.0 Urinary tract infection, site not specified; E87.20 Acidosis, unspecified; E87.5 Hyperkalemia; E83.42 Hypomagnesemia; E11.22 Type 2 diabetes mellitus with diabetic chronic kidney disease; E86.1 Hypovolemia; I12.9 Hypertensive chronic kidney disease with stage 1 through stage 4 chronic kidney disease, or unspecified chronic kidney disease; I25.10 Atherosclerotic heart disease of native coronary artery without angina pectoris; N18.31 Chronic kidney disease, stage 3a; Z79.84 Long term (current) use of oral hypoglycemic drugs; Z79.899 Other long term (current) drug therapy; Z85.528 Personal history of other malignant neoplasm of kidney; Z90.5 Acquired absence of kidney; R33.9 Retention of urine, unspecified; Z28.310 Unvaccinated for COVID-19; Z28.21 Immunization not carried out because of patient refusal; Z88.1 Allergy status to other antibiotic agents; Z88.0 Allergy status to penicillin
CPT/HCPCS: 36415; 51798; 76770; 80048; 80053; 81001; 82306; 82652; 82803; 83735; 84100; 84132; 84484; 85025; 85027; 86140; 87040; 87086; 93005; 96365; 96375; 96376; 99285

== ENCOUNTER → 2024-01-03 | Outpatient (CLI) | payer MEDICARE ==
--- NOTE | 2024-01-06 10:01 | MR ---
EXAMINATION TYPE: MR angio abdomen wo/w con DATE OF EXAM: 01/03/2024 2:31 PM CLINICAL INDICATION:Female, 73 years old with history of I10 Resistant hypertension; , Uncontrolled B P COMPARISON: Ultrasound 09/25/2023 TECHNIQUE: Multiplanar, multi-sequence imaging as well as [id number] and contrast enhanced imagin g was performed of the abdomen and pelvis. . Maximum intensity projection reformatted images were mo bmitted for evaluation. IV Contrast: 6.5 cc Gadavist FINDINGS: MAGNETIC RESONANCE ANGIOGRAPHY: The abdominal aorta does not demonstrate aneurysmal dilatation. The origins of the superior mesenteric artery, renal arteries, inferior mesenteric artery, and celiac ax is are patent. There is a accessory right hepatic artery off the superior mesenteric artery. The anitha c vessels are normal in morphology. Abdomen: The liver, spleen, adrenal glands, and pancreas do appear unremarkable. The left kidney is n ot visualized. IMPRESSION: No evidence of aneurysm or significant vascular stenosis. The right renal artery is without evidence for significant stenosis.
== END | disposition home or self-care (01) ==
LOC: RADMRIMAIN 13:25
PROVIDERS: ATTEND Internal Medicine Nephrology
DX: I10 Essential (primary) hypertension (principal)
CPT/HCPCS: C8902; A9585; 74185